=== PATIENT | male | born 1965 | race Caucasian/White ===

== ENCOUNTER 2020-08-04 12:52 | Emergency (ER) | payer OTHER, SELFPAY ==
--- NOTE | ~2020-08-04 | CT_ITS ---
EXAMINATION: CT thoracic lumbar wo con EXAM DATE: 08/04/2020 13:59 INDICATION: fall with upper back injury fall today from 10ft, all over back, neck and chest pain. Ini tial encounter. TECHNIQUE: Spiral CT thoracolumbar spine was performed without contrast. Axial, coronal and sagittal images of the thoracic spine were reviewed. Axial, coronal and sagittal images of the lumbar spine we re reviewed. The dose-length product (DLP) for this examination was 781.05 mGy-cm. The exposure was tailored according to patient size (auto mA exposure control), and iterative reconstruction (ASIR) wa s used as additional dose reduction technique. There is no prior study for comparison. FINDINGS: THORACIC SPINE: Acute closed posttraumatic fracture extending through the posterior elements of the T 10 vertebral body, the spinous process and the inferior articular processes of both facet joints. The re is also acute fracture through the T10 superior endplate, anterior column, with minimal anterior w edging. The middle column appears intact. Two column involvement can be potentially unstable, but unu sual to have sparing of the middle column. Recommend neurosurgical evaluation. There is also acute closed posttraumatic fracture superior endplate of the T11 vertebral body, minima l anterior wedging. LUMBAR SPINE: Sacroiliac joints are intact. Moderate disc disease at L5-S1, mild at L4-5. There is n o evidence of acute lumbar fracture. There is no disc space widening or traumatic vertebral body sub luxation suspected. Paraspinal soft tissue is unremarkable. There is 2 mm retrolisthesis L4 on L5. Mild to moderate lower lumbar facet arthropathy. A detailed level by level evaluation of spondylosis can be added as addendum if requested. IMPRESSION: 1. T10 fractures involving anterior and posterior columns; recommend neurosurgical consult to determ ine stability. Minimal anterior wedging. 2. T11 superior endplate acute fracture, minimal anterior wedging. 3. No lumbar fracture. Reviewed, dictated and finalized at location B. IMPRESSION: 1. T10 fractures involving anterior and posterior columns; recommend neurosurg ical consult to determine stability. Minimal anterior wedging. 2. T11 superior endplate acute fracture, minimal anterior wedging. 3. No lumbar fracture.
--- NOTE | ~2020-08-04 | XR_ITS ---
EXAMINATION: XR_RIBSBI_CR DATE: 08/04/2020 14:01 INDICATION: Bilateral rib pain. Fall. TECHNIQUE: 3 views of the right ribs and 3 views of the left ribs were obtained. COMPARISON: None. FINDINGS: Calcified pulmonary nodules are consistent with old granulomatous disease. No pleural effus ion or pneumothorax. The heart size is normal. IMPRESSION: 1. No rib fracture. Reviewed, dictated and finalized at location A. IMPRESSION: 1. No rib fracture.
--- NOTE | ~2020-08-04 | CT_ITS ---
EXAMINATION: CT cervical spine wo con DATE: 08/04/2020 14:00 INDICATION: Neck injury. Fall. TECHNIQUE: Computed tomography (CT) of the cervical spine was performed without intravenous contrast. Automated exposure control and iterative reconstruction technique were employed. The dose-length pro duct was 361.15 mGy-cm. COMPARISON: CT cervical spine 09/10/2012 FINDINGS: Bone alignment is normal. Vertebral body heights are normal. There is mildly decreased disc height at C4-C5 and moderately decreased disc height at C5-C6 and C6-C7. The following disc levels a re specifically discussed: C2-C3: There is mild bilateral uncovertebral joint osteoarthritis. There is mild right facet joint os teoarthritis. There is no neural foraminal stenosis. There is no central canal stenosis. C3-C4: There is mild bilateral uncovertebral joint osteoarthritis. There is moderate left facet joint osteoarthritis. There is no neural foraminal stenosis. There is mild central canal stenosis. C4-C5: There is mild right and severe left uncovertebral joint osteoarthritis. There is mild left fac et joint osteoarthritis. There is mild bilateral neural foraminal stenosis. There is mild central can al stenosis. C5-C6: There is severe bilateral uncovertebral joint osteoarthritis. There is no facet joint osteoart hritis. There is mild right and moderate left neural foraminal stenosis. There is mild central canal stenosis. C6-C7: There is severe bilateral uncovertebral joint osteoarthritis. There is no facet joint osteoart hritis. There is moderate bilateral neural foraminal stenosis. There is mild central canal stenosis. C7-T1: There is no uncovertebral joint osteoarthritis. There is severe bilateral facet joint osteoart hritis. There is no neural foraminal stenosis. There is no central canal stenosis. IMPRESSION: 1. No fracture. 2. Moderate cervical spondylosis. Reviewed, dictated and finalized at location A.
[2020-08-04 13:11] VITALS: BP 123/79; PULSE 71; RESP 16; TEMP 37; O2SAT 98
[2020-08-04] MEDS: SODIUM CHLORIDE 0.9% IV 1,000 ML 999 ML IV CONT (13:22)
[2020-08-04] MEDS: KETOROLAC 30 MG/ML VIAL (*BKC) IV PUSH (13:22)
[2020-08-04 13:27] LABS: Add Urine Microscopic? YES; Appearance Urine Clear (Clear); Bilirubin Urine Negative (Negative); Blood Urine Negative (Negative); Color Urine Yellow (Yellow); Glucose Urine UA Negative (Negative); Ketones Urine Negative (Negative); Leukocyte Esterase Ur Negative (Negative); Nitrate Urine Negative (Negative); Protein Urine Trace (Negative); Urobilinogen Urine 0.2 mg/dL (0.2-1.0)
[2020-08-04 13:32] LABS: RBC Urine 0-2 /hpf (0-2); Squamous Epithelial Cell Urine None seen /hpf (Few); WBC Urine 0-3 /hpf (0-3)
[2020-08-04 13:33] LABS: Bacteria Urine 1+ /hpf; Mucus Urine Moderate /lpf
[2020-08-04 13:44] LABS: Alanine Aminotransferase 39 U/L (16-63); Albumin Level 4.2 g/dL (3.4-5.0); Alkaline Phosphatase 64 U/L (46-116); Anion Gap 9 mmol/L (8-16); Bilirubin,Total 0.6 mg/dL (0.00-1.00); Blood Urea Nitrogen 14 mg/dL (7-18); Calcium 9.4 mg/dL (8.5-10.1); Carbon Dioxide 27 mmol/L (21-32); Chloride 103 mmol/L (98-108); Creatine Kinase 470 U/L (39-308); Estimated CRCL calculation 99 ml/min; Estimated Glomerular Filt Rate > 60; Glucose 89 mg/dL (70-99); Osmolality Calculated 287 mOsm/kg (285-295); Sodium 139 mmol/L (136-145); Total Protein 7.8 g/dL (6.4-8.2)
[2020-08-04 13:55] LABS: Aspartate Amino Transferase 49 U/L (15-37); Potassium 5.6 mmol/L (3.5-5.1)
--- NOTE | 2020-08-04 14:24 | PC.NURSE ---
Pt requests [facility]. [place] transfer line contacted and state the er is on limited transfers and o/c physicial will typically refer to er because they cannot see our images. edp aware.
--- NOTE | 2020-08-04 14:32 | PC.NURSE ---
Pt request slu, slu transfer line contacted. dr cole speaking with slu transfer line.
--- NOTE | 2020-08-04 14:47 | ED.FALL ---
HPI - Fall General Chief Complaint: Fall Stated Complaint: fell off a ladder Source: patient and family Mode of arrival: ambulatory History of Present Illness HPI Narrative: 54-year-old after he fell about 10ft off a ladder onto his back causing pain in the midback area with radiation into bilateral ribs, has some mild neck pain has good range of motion in his neck with no loss of consciousness did not hit his head currently on no medications no blood thinners. His vitals are stable no neurological deficits, with no shortness of breath no numbness or tingling in his lower extremities. Patient did not have any dizziness or any event prior to the fall, mainly lost his footing falling onto his back and injuring his midback area. complaint: fall Onset (ago): hour(s) Fall from: other ( fall from a latter) Fall witnessed: yes, by family Place fall occurred: home Prolonged down time: no Symptoms prior to fall: none Context: tripped/slipped Related Data Home Medications Medication Instructions Recorded Confirmed No Home Medications 08/04/20 08/04/20 Allergies Allergy/AdvReac Type Severity Reaction Status Date / Time No Known Allergies Allergy Verified 08/04/20 13:10 Review of Systems Review of Systems: All systems reviewed & are unremarkable except as noted in HPI and below [facility] Past Medical History Medical History Patient denies medical problems Exam Const: General: no acute distress and alert Orientation/consciousness: patient oriented x3 HENMT: Head: normal to inspection Eyes: Conjunctivae: conjunctivae normal Pupils: Equal, round and reactive pupils present EOM: EOMs intact bilaterally Neck: Neck: normal visual inspection, no lymphadenopathy and no meningeal signs Chest: Chest palpation & inspection: normal inspection of the chest Resp: Effort & Inspection: normal respiratory effort Auscultation: clear to auscultation bilaterally Cardio: Rate: regular rate Rhythm: regular rhythm GI: Auscultation: normal bowel sounds : Testes: Testes normal Urinary Catheter: Urinary Catheter: patent and draining Back/Spine/Pelvis: Back: no CVA tenderness Skin: General skin exam: normal color Rashes: no rashes Neuro: General: patient oriented x3, moves all extremities, no meningeal signs and no focal motor deficits Extrem: Other: midback tenderness with palpation with some decreased range of motion secondary to pain Psych: Mental Status: mental status grossly normal Affect: normal affect Attitude: cooperative Course Course Emergency Course: patient received IV fluids and had blood work performed which shows that his CK was mildly elevated patient did receive IV fluids, reviewed CT scan with patient which showed a a T10 fracture of the anterior and posterior columns which warrants neural surgery evaluation. Spoke with some a physician at [facility] that would accept the patient, Dr. Alvarado is the accepting physician. Reviewed findings with patient and his an [facility] transport via EMS. Vital Signs Vital signs: Vital Signs Temperature 37.0 C 08/04/20 13:11 Pulse Rate 71 08/04/20 13:11 Respiratory Rate 16 08/04/20 13:11 Blood Pressure 123/79 08/04/20 13:11 Pulse Oximetry 98 08/04/20 13:11 Temperature 37.0 C 08/04/20 13:11 Pulse Rate 71 08/04/20 13:11 Respiratory Rate 16 08/04/20 13:11 Blood Pressure 123/79 08/04/20 13:11 Pulse Oximetry 98 08/04/20 13:11 MDM - Fall Lab Data Result diagrams: 08/04/20 13:22 Labs: Lab Results 08/04/20 08/04/20 Range/Units 13:10 13:22 Sodium 139 (136-145) mmol/L Potassium 5.6 H (3.5-5.1) mmol/L Chloride 103 (98-108) mmol/L Carbon Dioxide 27 (21-32) mmol/L Anion Gap 9 (8-16) mmol/L BUN 14 (7-18) mg/dL Creatinine 0.77 (0.70-1.30) mg/dL Estim Creat Clear Calc 99 ml/min Estimated GFR
[2020-08-04 15:22] VITALS: BP 114/77; PULSE 60; RESP 18; O2SAT 98
--- NOTE | 2020-08-04 15:24 | PC.NURSE ---
[facility] contacted for transfer
== END 2020-08-04 15:40 | disposition short-term general hospital (02) ==
PROVIDERS: Emergency Provider Emergency Medicine
DX: S22.072A Unstable burst fracture of T9-T10 vertebra, initial encounter for closed fracture (principal); W11.XXXA Fall on and from ladder, initial encounter
CPT/HCPCS: 36415; 71110; 72125; 72128; 72131; 80053; 81001; 82550; 96361; 96374; 99285; J1885; J7030; L0150

== ENCOUNTER 2020-08-16 09:40 | Outpatient (CLI) | payer OTHER, SELFPAY ==
[2020-08-16 10:40] LABS: Cholesterol 250 mg/dL (0-200); HDL Direct 53 mg/dL (40-60); LDL Cholesterol Calculated 180 mg/dL (<130); Triglycerides 84 mg/dL (0-150)
== END 2020-08-16 09:41 | disposition home or self-care (01) ==
LOC: CHSLAB 09:42
PROVIDERS: PCP Family Medicine; Visit Provider Family Medicine
DX: Z00.00 Encounter for general adult medical examination without abnormal findings (principal)
CPT/HCPCS: 36415; 80061